=== PATIENT | male | born 1950 | race African-American/Black ===

== ENCOUNTER 2017-05-24 22:18 | Inpatient (IN) | payer BC ==
[2017-05-25] MEDS: ASPIRIN 325 MG TAB PO (00:11)
[2017-05-25 00:22] LABS: ADD MAN DIFF? NO
[2017-05-25 00:24] LABS: BASOPHILS % 0.3 % (0.0-2.0); EOSINOPHILS # 0.1 10^3/ul (0.0-0.5); EOSINOPHILS % 2.2 % (0.0-7.0); HEMATOCRIT 43.4 % (42.0-52.0); HEMOGLOBIN 14.4 g/dl (14.0-18.0); LYMPHOCYTES # 2.4 10^3/ul (0.8-2.9); LYMPHOCYTES % 41.3 % (15.0-51.0); MEAN CORPUSCULAR HGB CONC 33.2 g/dl (32.0-37.0); MEAN CORPUSCULAR VOLUME 75.3 fl (82.0-101.0); MEAN PLATELET VOLUME 10.4 fl (7.4-10.4); MONOCYTE # 0.8 10^3/ul (0.3-0.9); MONOCYTES % 14.2 % (0.0-11.0); NEUTROPHIL # 2.5 10^3/ul (1.6-7.5); NEUTROPHILS % 41.7 % (39.0-77.0); PLATELET COUNT 255 10^3/UL (140-415); RED BLOOD COUNT 5.76 10^6/ul (4.70-6.10); RED CELL DISTRIBUTION WIDTH 14.6 % (11.5-14.5)
[2017-05-25 00:24] LABS: WHITE BLOOD COUNT 5.9 10^3/ul (4.8-10.8)
[2017-05-25 00:59] LABS: ANION GAP 15 (8-16); BLOOD UREA NITROGEN 17 mg/dl (7-20); CALCIUM 9.9 mg/dl (8.4-10.2); CARBON DIOXIDE 28 mmol/L (21-31); CHLORIDE 108 mmol/L (97-110); CREATININE 1.01 mg/dl (0.61-1.24); GLUCOSE 106 mg/dl (70-220); POTASSIUM 3.4 mmol/L (3.5-5.1); SODIUM 148 mmol/L (135-144)
[2017-05-25 01:09] LABS: B-TYPE NATRIURETIC PEPTIDE 76 PG/ML (0-125); TROPONIN-I 0.016 ng/ml (0.00-0.12)
[2017-05-25] MEDS: DILTIAZEM 30 MG TAB PO (02:52)
[2017-05-25] MEDS ORDERED: ACETAMINOPHEN 325 MG TAB PO (03:00)
[2017-05-25] MEDS ORDERED: ONDANSETRON 4 MG INJ IV (03:00)
[2017-05-25] MEDS: ONDANSETRON 4 MG INJ IV (03:30)
[2017-05-25 03:40] LABS: INR 0.91; PROTIME 12.3 Sec (11.9-14.9)
[2017-05-25 03:41] LABS: PARTIAL THROMBOPLASTIN TIME 30.8 Sec (25.0-35.0)
[2017-05-25 07:19] LABS: TROPONIN-I 0.029 ng/ml (0.00-0.12)
[2017-05-25 07:23] LABS: CK-MB 0.97 ng/ml (0.0-2.4)
[2017-05-25 07:30] LABS: CK INDEX 0.6; CREATINE KINASE 152 IU/L (23-200)
[2017-05-25 12:51] LABS: CREATINE KINASE 115 IU/L (23-200)
[2017-05-25 13:00] LABS: B-TYPE NATRIURETIC PEPTIDE 109 PG/ML (0-125)
[2017-05-25 13:01] LABS: CK INDEX 0.8
[2017-05-25 13:02] LABS: CK-MB 0.95 ng/ml (0.0-2.4)
[2017-05-25 13:07] LABS: TROPONIN-I 0.013 ng/ml (0.00-0.12)
[2017-05-25 13:12] LABS: D-DIMER 263.62 ng/ml (<460)
[2017-05-25 16:42] LABS: MAGNESIUM 2.1 mg/dl (1.7-2.5)
[2017-05-25] MEDS: POTASSIUM CHLORIDE (SR) 20 MEQ TAB PO (16:49)
[2017-05-25] MEDS: FAMOTIDINE 20 MG TAB NGT ×2 (16:49→20:54)
[2017-05-25] MEDS: ENOXAPARIN 40 MG/0.4 ML SYG SC (16:52)
[2017-05-25 17:15] LABS: THYROID STIMULATING HORMONE 0.462 MIU/L (0.465-4.680)
[2017-05-25 18:22] LABS: CHOLESTEROL 213 mg/dl (100-200)
[2017-05-25 18:22] LABS: HDL CHOLESTEROL 35 mg/dl (30-78); LDL CHOLESTEROL,CALCULATED 153 mg/dl; TRIGLYCERIDES 123 mg/dl (0-149)
[2017-05-25] MEDS: DILTIAZEM (CD) 120 MG CAP PO (19:25)
[2017-05-25] MEDS: SOD CHLORIDE 0.9% 1,000 ML IV (19:26)
[2017-05-26 05:57] LABS: ADD MAN DIFF? NO
[2017-05-26 06:02] LABS: WHITE BLOOD COUNT 6.9 10^3/ul (4.8-10.8)
[2017-05-26 06:02] LABS: BASOPHILS % 0.3 % (0.0-2.0); EOSINOPHILS # 0.1 10^3/ul (0.0-0.5); EOSINOPHILS % 1.6 % (0.0-7.0); HEMATOCRIT 39.1 % (42.0-52.0); HEMOGLOBIN 13.2 g/dl (14.0-18.0); LYMPHOCYTES # 2.5 10^3/ul (0.8-2.9); LYMPHOCYTES % 37.1 % (15.0-51.0); MEAN CORPUSCULAR HEMOGLOBIN 25.2 pg (29.0-33.0); MEAN CORPUSCULAR HGB CONC 33.8 g/dl (32.0-37.0); MEAN CORPUSCULAR VOLUME 74.8 fl (82.0-101.0); MEAN PLATELET VOLUME 10.1 fl (7.4-10.4); MONOCYTE # 0.7 10^3/ul (0.3-0.9); MONOCYTES % 9.6 % (0.0-11.0); NEUTROPHIL # 3.5 10^3/ul (1.6-7.5); PLATELET COUNT 254 10^3/UL (140-415); RED BLOOD COUNT 5.23 10^6/ul (4.70-6.10); RED CELL DISTRIBUTION WIDTH 14.6 % (11.5-14.5)
[2017-05-26 06:26] LABS: ANION GAP 12 (8-16); BLOOD UREA NITROGEN 16 mg/dl (7-20); CARBON DIOXIDE 25 mmol/L (21-31); CHLORIDE 111 mmol/L (97-110); CREATININE 0.93 mg/dl (0.61-1.24); GLUCOSE 108 mg/dl (70-220); POTASSIUM 3.9 mmol/L (3.5-5.1); SODIUM 144 mmol/L (135-144)
[2017-05-26 06:27] LABS: MAGNESIUM 1.9 mg/dl (1.7-2.5)
[2017-05-26 06:39] LABS: FREE T4 (FREE THYROXINE) 0.99 ng/dl (0.78-2.44)
[2017-05-26 06:41] LABS: FREE T3 3.76 pg/ml (2.77-5.27)
[2017-05-26] MEDS: ENOXAPARIN 40 MG/0.4 ML SYG SC (09:00)
[2017-05-26] MEDS: ASPIRIN 81 MG TAB PO (09:44)
[2017-05-26] MEDS: FAMOTIDINE 20 MG TAB NGT (09:44)
[2017-05-26] MEDS: DILTIAZEM (CD) 120 MG CAP PO (09:47)
[2017-05-26] MEDS: MAGNESIUM OXIDE 400 MG TAB PO (12:33)
[2017-05-26] MEDS: MAGNESIUM SULFATE 2 GM/50 ML 50 ML IVPB (12:35)
[2017-05-26] MEDS ORDERED: ATORVASTATIN 40 MG TAB PO (21:00)
[2017-05-26] MEDS ORDERED: MAGNESIUM OXIDE 400 MG TAB PO (21:00)
== END 2017-05-26 14:15 | disposition home or self-care (01) | DRG 309 ==
LOC: E/R 22:18 → MS3 05-25 02:55
DX: I48.0 Paroxysmal atrial fibrillation (principal); E87.1 Hypo-osmolality and hyponatremia; I11.9 Hypertensive heart disease without heart failure; I47.1 Supraventricular tachycardia; E87.6 Hypokalemia; R07.89 Other chest pain
CPT/HCPCS: 36415; 71045; 80048; 80061; 82550; 82553; 83735; 83880; 84439; 84443; 84481; 84484; 85025; 85378; 85610; 85730; 93005; 93306; 96374; 99285-25